=== PATIENT | male | born 1985 | race Caucasian/White ===

== ENCOUNTER 2016-12-30 20:50 | Emergency (ER) | payer OTHER ==
[~2016-12-30] VITALS: Ht 198.1 cm; Wt 76.0 kg
[2016-12-30] MEDS ORDERED: KETOROLAC 30MG/ML VIAL IV STA (23:00)
[2016-12-30] MEDS ORDERED: SODIUM CHLORIDE 0.9% 1,000 ML IV ONE (23:00)
[2016-12-30] MEDS ORDERED: ONDANSETRON HCL 4MG/2ML VIAL IV STA (23:00)
[2016-12-30 23:33] VITALS: BP 129/66
[2016-12-30 23:41] LABS: BASOPHILS % 0.3 % (0.0-2.0); HEMOGLOBIN. 12.8 g/dL (14.0-18.0); LYMPHOCYTES % 29.5 % (20.0-50.0); MEAN CORPUSCULAR HEMOGLOBIN 28.3 pg (28.0-32.0); MEAN CORPUSCULAR VOLUME 81.8 fL (80.0-94.0); MONOCYTES % 14.8 % (2.0-8.0); NEUTROPHILS % 51.4 % (40.0-76.0); PLATELET 158 x1000/uL (130-400); RED BLOOD CELL COUNT 4.53 mill/uL (4.7-6.1); RED CELL DISTRIBUTION WIDTH 16.4 % (11.6-14.6)
[2016-12-30 23:43] LABS: INR 1.1; PROTHROMBIN TIME 11.3 sec (9.4-11.6)
[2016-12-30 23:51] LABS: CARBON DIOXIDE 25 mEq/L (21-32); CHLORIDE 104 mEq/L (98-107); TROPONIN I < 0.02 ng/mL (0.00-0.04)
== END 2016-12-31 00:15 | disposition left against medical advice (07) ==
LOC: ER 22:00
DX: R07.2 Precordial pain (principal); F17.200 Nicotine dependence, unspecified, uncomplicated; F11.10 Opioid abuse, uncomplicated; F15.10 Other stimulant abuse, uncomplicated; I10 Essential (primary) hypertension; Z95.2 Presence of prosthetic heart valve; Z79.02 Long term (current) use of antithrombotics/antiplatelets
CPT/HCPCS: 36415; 71010; 80053; 83605; 83880; 84484; 85025; 85610; 87040; 93005; 96361; 96374; 96375; 99285; J1885; J2405; J7030; X7700; Z7610

== ENCOUNTER 2016-12-31 02:17 | Emergency (ER) | payer OTHER ==
[~2016-12-31] VITALS: Ht 188 cm; Wt 91.0 kg
[2016-12-31] MEDS ORDERED: ACETAMINOPHEN 325MG TABLET PO ONE (06:15)
[2016-12-31] MEDS ORDERED: LORAZEPAM 0.5MG TABLET PO ONE (06:15)
[2016-12-31 06:53] LABS: BASOPHILS % 0.3 % (0.0-2.0); EOSINOPHILS % 3.6 % (0.0-5.0); HEMATOCRIT. 35.2 % (42.0-52.0); HEMOGLOBIN. 12.3 g/dL (14.0-18.0); LYMPHOCYTES % 25.3 % (20.0-50.0); MEAN CORPUSCULAR HEMOGLOBIN 28.3 pg (28.0-32.0); MEAN CORPUSCULAR VOLUME 81.4 fL (80.0-94.0); MEAN PLATELET VOLUME 8.6 fl (7.4-10.4); MONOCYTES % 14.2 % (2.0-8.0); NEUTROPHILS % 56.6 % (40.0-76.0); PLATELET 148 x1000/uL (130-400); RED BLOOD CELL COUNT 4.33 mill/uL (4.7-6.1); RED CELL DISTRIBUTION WIDTH 16.5 % (11.6-14.6)
[2016-12-31 07:10] LABS: CARBON DIOXIDE 23 mEq/L (21-32); CHLORIDE 107 mEq/L (98-107); TROPONIN I < 0.02 ng/mL (0.00-0.04)
[2016-12-31 07:11] LABS: INR 1.1; PARTIAL THROMBOPLASTIN TIME 28.5 sec (23.4-31.0); PROTHROMBIN TIME 11.7 sec (9.4-11.6)
[2016-12-31 07:46] LABS: GLUCOSE URINE NEGATIVE (NEGATIVE); KETONES URINE NEGATIVE (NEGATIVE); LEUKOCYTE ESTERASE URINE TRACE (NEGATIVE); NITRITE URINE NEGATIVE (NEGATIVE); OCCULT BLOOD URINE NEGATIVE (NEGATIVE); PROTEIN URINE NEGATIVE (NEGATIVE); SPECIFIC GRAVITY URINE 1.014 (1.005-1.030); UROBILINOGEN URINE 0.2 E.U./dL (0.2-1.0)
[2016-12-31 07:48] LABS: CLARITY URINE CLEAR (CLEAR); COLOR URINE YELLOW (YELLOW)
[2016-12-31 07:56] LABS: *AMPHETAMINES SCREEN URINE PRESUMTIVE POSITIVE (NEGATIVE); *BARBITURATES SCREEN URINE NEGATIVE (NEGATIVE); *BENZODIAZEPINES SCREEN URINE NEGATIVE (NEGATIVE); *COCAINE SCREEN URINE NEGATIVE (NEGATIVE); CANNABINOID URINE SCREEN NEGATIVE (NEGATIVE); METHADONE URINE SCREEN NEGATIVE (NEGATIVE); OPIATES URINE SCREEN NEGATIVE (NEGATIVE); PHENCYCLIDINE URINE SCREEN NEGATIVE (NEGATIVE)
[2016-12-31 08:39] VITALS: BP 123/54
[2016-12-31] MEDS ORDERED: POTASSIUM CHLORIDE 20MEQ TABLET SR PO SCH (10:00)
== END 2016-12-31 10:20 | disposition home or self-care (01) ==
LOC: ER 02:39
DX: R07.9 Chest pain, unspecified (principal); F15.10 Other stimulant abuse, uncomplicated; M79.1 Myalgia; M54.5 Low back pain; I10 Essential (primary) hypertension; F11.10 Opioid abuse, uncomplicated
CPT/HCPCS: 36415; 71010; 80053; 80305; 81001; 83690; 84484; 85025; 85610; 85730; 93005; 99285; Z7610